=== PATIENT | female | born 2000 | race African-American/Black ===

== ENCOUNTER 2020-04-19 00:08 | Inpatient (IN) ==
[2020-04-19] MEDS ORDERED: MEPERIDINE 50 MG/1 ML VIAL IV PRN (00:19)
[2020-04-19] MEDS ORDERED: BUTORPHANOL 2 MG/ML VIAL IV PRN (00:19)
[2020-04-19] MEDS ORDERED: ONDANSETRON 4 MG/2 ML VIAL IV PRN (00:19)
[2020-04-19] MEDS ORDERED: ACETAMINOPHEN 325 MG TABLET PO PRN (00:19)
[2020-04-19] MEDS ORDERED: LACTATED RINGERS 1,000 ML IV SCH (00:30)
[2020-04-19 00:57] LABS: Basophils % 0.2 % (0.0-0.8); Eosinophils # 0.1 10*3/uL (0.0-0.87); Eosinophils % 0.8 % (0.00-10.9); Hematocrit 30.7 VOL% (35.7-47.0); Hemoglobin 8.9 GM/DL (12.0-16.0); Immature Granulocytes % 0.4 %; Immature Granulocytes Absolute 0.05 #; Lymphocytes # 2.3 10*3/uL (1.4-4.0); Lymphocytes % 20.2 % (21.3-54.2); Mean Corpuscular Volume 68.7 FL (87-102); Mean Platelet Volume 9.2 FL (9.6-12.0); Monocytes % 7.9 % (1.7-12.7); NRBC # 0.03 10*3/uL; Neutrophils % 70.5 % (38.7-73.9); Platelet Count 317 T/CUMM (130-400); Red Blood Count 4.47 MC/CUMM (3.8-5.5); Red Cell Distribution Width 19.2 % (9.3-17.3); White Blood Count 11.5 T/CUMM (4-12)
[2020-04-19] MEDS ORDERED: AMPICILLIN INJ 2,000 MG in SODIUM CHLORIDE 0.9% 100 ML IV ONE (03:50)
[2020-04-19] MEDS ORDERED: PROMETHAZINE 25 MG/1 ML VIAL IM ONE (08:53)
[2020-04-19] MEDS ORDERED: ePHEDrine 50 MG/ML VIAL IV PRN ×2 (08:53)
[2020-04-19] MEDS ORDERED: FAMOTIDINE 20 MG/2 ML VIAL IV ONE (08:53)
[2020-04-19] MEDS ORDERED: diphenhydrAMINE 50 MG/1 ML VIAL IV PRN ×2 (08:53)
[2020-04-19] MEDS ORDERED: hydrOXYzine HCL 25 MG/1 ML VIAL IM PRN (08:53)
[2020-04-19] MEDS ORDERED: LACTATED RINGERS 1,000 ML IV ONE (08:53)
[2020-04-19] MEDS ORDERED: NALOXONE 0.4 MG/ML VIAL IV PRN (08:53)
[2020-04-19] MEDS ORDERED: CITRIC ACID/SODIUM CITRATE 30 ML UDCUP PO ONE (08:53)
[2020-04-19] MEDS: AMPICILLIN INJ 1,000 MG in SODIUM CHLORIDE 0.9% 100 ML IV SCH ×3 (11:00→18:50)
[2020-04-19] MEDS ORDERED: OXYTOCIN/LR 20 UNIT/1,000 ML BAG IV SCH (11:30)
[2020-04-19 12:21] LABS: Bilirubin,Urine Negative (Negative); Blood, Urine Negative (Negative); Glucose,Urine (UA) Negative (Negative); Ketones,Urine 20 mg/dL (Negative); Mucus,Urine Occasional /LPF (Occasional); Nitrite,Urine Negative (Negative); Protein,Urine Negative; Squamous Epithelial Cell,Urine Occasional /HPF (0-10); Urine Appearance CLEAR (Clear); Urine Color Yellow (Yellow); Urine Specific Gravity 1.012 (1.001-1.035); Urine Urobilinogen < 2.0 EU/DL (0.2-1.0); WBC,Urine 4 /HPF (0-6)
[2020-04-19] MEDS: fentaNYL 2 MCG/ROPIV 0.2% EPID 100 ML EPIDURAL SCH ×3 (12:28→23:46)
[2020-04-19] MEDS ORDERED: TERBUTALINE 1 MG/1 ML VIAL SUBCUT PRN (13:57)
[2020-04-19] MEDS ORDERED: TERBUTALINE 1 MG/1 ML VIAL ONE (14:05)
[2020-04-19] MEDS ORDERED: TRANEXAMIC ACID 1,000 MG/10 ML VIAL ONE (18:50)
[2020-04-19] MEDS ORDERED: miSOPROStoL 200 MCG TABLET ONE (18:50)
[2020-04-19] MEDS ORDERED: OXYTOCIN/LR 20 UNIT/1,000 ML BAG IV ONE (18:51)
[2020-04-19] MEDS ORDERED: CARBOPROST TROMETHAMINE 250 MCG/ML AMP IM ONE (18:51)
[2020-04-19] MEDS ORDERED: METHYLERGONOVINE 0.2 MG/1 ML AMP ONE (18:51)
[2020-04-19 22:08] LABS: Cord Venous Blood HCO3 18.3 MMOL/L; Cord Venous Blood PCO2 43.9 MMHG; Cord Venous Blood PO2 40.7
[2020-04-20] MEDS ORDERED: HYDROCORTISONE 2.5% RECTAL CREAM 30 GM TUBE TOP PRN (00:21)
[2020-04-20] MEDS ORDERED: WITCH HAZEL PADS 100/JAR TOP PRN (00:21)
[2020-04-20] MEDS ORDERED: RHO(D) IMMUNE GLOBULIN 300 MCG SYRINGE IM ONE (00:21)
[2020-04-20] MEDS ORDERED: oxyCODONE/ACETAMINOPHEN 5-325 MG TABLET PO PRN ×2 (00:21)
[2020-04-20] MEDS ORDERED: DIPH/TET/ACEL PERT BOOSTER VACCINE 0.5 ML VIAL IM ONE (00:21)
[2020-04-20] MEDS ORDERED: MEASLES/MUMPS/RUBELLA VACCINE 0.5 ML VIAL SUBCUT ONE (00:21)
[2020-04-20] MEDS ORDERED: BISACODYL 10 MG SUPP RECTAL PRN (00:21)
[2020-04-20] MEDS ORDERED: BENZOCAINE 20%/MENTHOL 0.5% SPRAY 56 GM CAN TOP PRN (00:21)
[2020-04-20] MEDS ORDERED: LANOLIN 50% CREAM 0.3 OZ TUBE TOP PRN (00:21)
[2020-04-20] MEDS ORDERED: OXYTOCIN/LR 20 UNIT/1,000 ML BAG IV ONE (00:21)
[2020-04-20] MEDS: IBUPROFEN 800 MG TABLET PO PRN ×2 (02:44→18:15)
[2020-04-20 05:58] LABS: Basophils % 0.2 % (0.0-0.8); Hematocrit 24.1 VOL% (35.7-47.0); Immature Granulocytes % 0.7 %; Immature Granulocytes Absolute 0.17 #; Lymphocytes # 2.2 10*3/uL (1.4-4.0); Lymphocytes % 8.8 % (21.3-54.2); Mean Corpuscular Volume 69.9 FL (87-102); Mean Platelet Volume 8.8 FL (9.6-12.0); NRBC # 0.02 10*3/uL; Neutrophils % 81.3 % (38.7-73.9); Platelet Count 245 T/CUMM (130-400); Red Blood Count 3.45 MC/CUMM (3.8-5.5); Red Cell Distribution Width 18.9 % (9.3-17.3); White Blood Count 24.7 T/CUMM (4-12)
[2020-04-20 06:23] LABS: Hypochromasia 2+; Lymphocytes 11 % (20-55); Platelet Estimate Adequate; Segmented Neutrophils 82 % (50-85); Total Cells Counted 100
[2020-04-20] MEDS: DOCUSATE SODIUM 100 MG CAPSULE PO SCH ×2 (09:34→21:15)
[2020-04-20] MEDS ORDERED: SODIUM CHLORIDE 0.9% 1,000 ML IV PRN (18:36)
[2020-04-20] MEDS: FERROUS SULFATE 325 MG TABLET PO SCH (21:15)
[2020-04-21 00:38] VITALS: BP 114/58
[2020-04-21 06:07] LABS: Basophils # 0.1 10*3/uL (0.0-0.2); Basophils % 0.3 % (0.0-0.8); Eosinophils # 0.2 10*3/uL (0.0-0.87); Eosinophils % 1.1 % (0.00-10.9); Hematocrit 31.3 VOL% (35.7-47.0); Immature Granulocytes Absolute 0.16 #; Lymphocytes # 4.5 10*3/uL (1.4-4.0); Lymphocytes % 26.8 % (21.3-54.2); Mean Corpuscular HGB Conc 29.7 GM/DL (32-36); Mean Corpuscular Volume 72.6 FL (87-102); Mean Platelet Volume 9.3 FL (9.6-12.0); Monocytes % 7.3 % (1.7-12.7); Neutrophils % 63.5 % (38.7-73.9); Platelet Count 249 T/CUMM (130-400); Red Cell Distribution Width 20.3 % (9.3-17.3); White Blood Count 16.7 T/CUMM (4-12)
[2020-04-21 06:09] LABS: Hemoglobin 9.3 GM/DL (12.0-16.0); Red Blood Count 4.31 MC/CUMM (3.8-5.5)
[2020-04-21 06:12] LABS: Hypochromasia 1+
[2020-04-21 06:13] LABS: Platelet Estimate Adequate
[2020-04-21] MEDS: DOCUSATE SODIUM 100 MG CAPSULE PO SCH (08:50)
[2020-04-21] MEDS: IBUPROFEN 800 MG TABLET PO PRN (08:55)
[2020-04-21] MEDS: FERROUS SULFATE 325 MG TABLET PO SCH (08:55)
== END 2020-04-21 15:25 | disposition home or self-care (01) | DRG 560 ==
LOC: N.LDOUT 00:08 → N.LD 00:12
PROVIDERS: ADMIT Obstetrics & Gynecology; ATTEND Obstetrics & Gynecology